=== PATIENT | female | born 1970 | race Caucasian/White ===

== ENCOUNTER 2023-03-28 16:25 | Emergency (ER) | payer MEDICAID ==
[~2023-03-28] VITALS: Ht 160 cm; Wt 118.0 kg
[~2023-03-28 16:25] MED LIST: NONE REPORTED
[2023-03-28 16:43] VITALS: PULSE 109; RESP 18
[2023-03-28 16:46] VITALS: BP 185/102; TEMP 98.3; O2SAT 100
== END 2023-03-28 18:50 | disposition left against medical advice (07) ==
LOC: ER 16:25
DX: M79.10 Myalgia, unspecified site (principal); Z53.21 Procedure and treatment not carried out due to patient leaving prior to being seen by health care provider
CPT/HCPCS: 99281